=== PATIENT | male | born 1945 | race Caucasian/White ===

== ENCOUNTER 2022-01-03 23:10 | Observation (INO) ==
[2022-01-04] MEDS ORDERED: Naloxone 0.4 MG/ML INJ IVP PRN (02:05)
[2022-01-04] MEDS ORDERED: Ondansetron 4 MG/2 ML VIAL IVP PRN (02:05)
[2022-01-04] MEDS: 0.9 % Sodium Chloride 1,000 ML IVC SCH ×2 (02:43→19:47)
[2022-01-04] MEDS ORDERED: *HR* HYDROmorphone (PF) 1 MG/ML SYRINGE IVP PRN (04:11)
[2022-01-04 05:59] LABS: Hemoglobin 13.3 g/dL (12.9-16.9); Mean Corpuscular Hemoglobin 32.1 pg (28.0-33.3); Mean Corpuscular Volume 91.8 fL (83.0-100.0); Mean Platelet Volume 11.2 fL (9.4-12.4); Platelet Count 244 K/mcL (140-400); Red Blood Count 4.14 M/mcL (4.19-5.50); Red Cell Distribution Width 12.1 % (11.5-14.5); White Blood Count 10.6 K/mcL (4.3-11.1)
[2022-01-04 06:05] LABS: INR 1.2; Prothrombin Time 13.3 Seconds (9.4-12.1)
[2022-01-04 06:08] LABS: Activated Partial Thrombo Time 34.1 Seconds (26.0-36.0)
[2022-01-04 06:24] LABS: BUN/Creatinine Ratio 19 (6-26); Blood Urea Nitrogen 25 mg/dL (8-23); Calcium 9.4 mg/dL (8.6-10.3); Carbon Dioxide 20 mEq/L (23-29); Chloride 109 mEq/L (98-107); Glucose 116 mg/dL (70-105); Osmolality,Calculated 293 (280-300); Potassium 3.5 mEq/L (3.5-5.1); Sodium 139 mEq/L (136-145); eGFR For African Americans > 60 (> 60); eGFR For Non-African Americans 53 (> 60)
[2022-01-04] MEDS ORDERED: Lidocaine -MPF 2% 2 ML VIAL ONE (06:38)
[2022-01-04] MEDS ORDERED: Ketamine HCL *QUVA* 50mg (1mL) SYRINGE ONE (06:46)
[2022-01-04] MEDS: Acetaminophen 325 MG TABLET PO PRN (19:32)
[2022-01-05 06:27] LABS: Basophils % 0.6 %; Eosinophils # 0.3 K/mcL (0.0-0.6); Eosinophils % 3.8 %; Hematocrit 34.8 % (37.5-50.1); Immature Granulocytes % 0.3 % (0-4); Lymphocytes # 1.7 K/mcL (0.6-4.6); Lymphocytes % 24.5 %; Mean Corpuscular HGB Conc 34.5 g/dL (31.6-35.5); Mean Corpuscular Hemoglobin 32.3 pg (28.0-33.3); Mean Corpuscular Volume 93.5 fL (83.0-100.0); Mean Platelet Volume 11.2 fL (9.4-12.4); Monocytes # 0.6 K/mcL (0.0-1.3); Monocytes % 8.3 %; Neutrophils # 4.3 K/mcL (1.6-8.9); Platelet Count 175 K/mcL (140-400); Red Blood Count 3.72 M/mcL (4.19-5.50); Red Cell Distribution Width 12.1 % (11.5-14.5); Segmented Neutrophils % 62.5 %; White Blood Count 6.9 K/mcL (4.3-11.1)
[2022-01-05 06:38] LABS: BUN/Creatinine Ratio 18 (6-26); Blood Urea Nitrogen 19 mg/dL (8-23); Calcium 8.8 mg/dL (8.6-10.3); Carbon Dioxide 23 mEq/L (23-29); Chloride 113 mEq/L (98-107); Glucose 90 mg/dL (70-105); Magnesium 1.9 mg/dL (1.6-2.6); Osmolality,Calculated 294 (280-300); Phosphorous 2.8 mg/dL (2.7-4.5); Potassium 3.5 mEq/L (3.5-5.1); Sodium 141 mEq/L (136-145); eGFR For African Americans > 60 (> 60); eGFR For Non-African Americans > 60 (> 60)
[2022-01-05] MEDS: lisinopriL 20 MG TABLET PO SCH (11:23)
[2022-01-06] MEDS: Acetaminophen 325 MG TABLET PO PRN ×2 (01:37→23:41)
[2022-01-06 03:23] LABS: Basophils # 0.1 K/mcL (0.0-0.2); Basophils % 0.7 %; Eosinophils # 0.4 K/mcL (0.0-0.6); Eosinophils % 5.8 %; Hematocrit 34.8 % (37.5-50.1); Hemoglobin 11.9 g/dL (12.9-16.9); Immature Granulocytes % 0.4 % (0-4); Lymphocytes # 1.8 K/mcL (0.6-4.6); Lymphocytes % 25.2 %; Mean Corpuscular HGB Conc 34.2 g/dL (31.6-35.5); Mean Corpuscular Hemoglobin 32.4 pg (28.0-33.3); Mean Corpuscular Volume 94.8 fL (83.0-100.0); Mean Platelet Volume 11.4 fL (9.4-12.4); Monocytes # 0.6 K/mcL (0.0-1.3); Monocytes % 8.7 %; Neutrophils # 4.2 K/mcL (1.6-8.9); Platelet Count 189 K/mcL (140-400); Red Blood Count 3.67 M/mcL (4.19-5.50); Red Cell Distribution Width 12.3 % (11.5-14.5); Segmented Neutrophils % 59.2 %; White Blood Count 7.1 K/mcL (4.3-11.1)
[2022-01-06 03:41] LABS: BUN/Creatinine Ratio 18 (6-26); Blood Urea Nitrogen 22 mg/dL (8-23); Calcium 8.6 mg/dL (8.6-10.3); Carbon Dioxide 23 mEq/L (23-29); Chloride 109 mEq/L (98-107); Glucose 94 mg/dL (70-105); Osmolality,Calculated 291 (280-300); Potassium 3.5 mEq/L (3.5-5.1); Sodium 139 mEq/L (136-145); eGFR For African Americans > 60 (> 60); eGFR For Non-African Americans 59 (> 60)
[2022-01-06] MEDS: lisinopriL 20 MG TABLET PO SCH (09:10)
[2022-01-06] MEDS: polyethylene glycoL 3350 17 GM POWD.PACK PO SCH (11:19)
[2022-01-07 05:02] VITALS: TEMP 98
[2022-01-07] MEDS: lisinopriL 20 MG TABLET PO SCH (09:36)
[2022-01-07] MEDS: polyethylene glycoL 3350 17 GM POWD.PACK PO SCH (09:36)
[2022-01-07 12:18] VITALS: BP 143/88; PULSE 69; O2SAT 94
== END 2022-01-07 12:45 | disposition home or self-care (01) ==
LOC: 3ANU → SUATTDRO 01-04 01:41
PROVIDERS: ADMIT Internal Medicine; ATTEND Family Medicine

== ENCOUNTER 2022-04-14 07:39 | Inpatient (IN) ==
[2022-04-14 08:51] LABS: Basophils % 0.2 %; Eosinophils % 0.1 %; Hematocrit 40.8 % (37.5-50.1); Hemoglobin 14.3 g/dL (12.9-16.9); Immature Granulocytes % 0.3 % (0-4); Lymphocytes % 10.4 %; Mean Corpuscular Hemoglobin 31.8 pg (28.0-33.3); Mean Corpuscular Volume 90.9 fL (83.0-100.0); Mean Platelet Volume 11.2 fL (9.4-12.4); Monocytes # 0.4 K/mcL (0.0-1.3); Monocytes % 3.9 %; Neutrophils # 7.8 K/mcL (1.6-8.9); Platelet Count 275 K/mcL (140-400); Red Blood Count 4.49 M/mcL (4.19-5.50); Red Cell Distribution Width 12.2 % (11.5-14.5); Segmented Neutrophils % 85.1 %; White Blood Count 9.2 K/mcL (4.3-11.1)
[2022-04-14 08:57] LABS: BUN/Creatinine Ratio 14 (6-26); Blood Urea Nitrogen 19 mg/dL (8-23); Calcium 10.2 mg/dL (8.6-10.3); Carbon Dioxide 23 mEq/L (23-29); Chloride 105 mEq/L (98-107); Glucose 138 mg/dL (70-105); Osmolality,Calculated 288 (280-300); Potassium 3.6 mEq/L (3.5-5.1); Sodium 137 mEq/L (136-145)
[2022-04-14 08:58] LABS: Bilirubin,Urine Negative (Negative); Blood,Urine Trace (Negative); Clarity,Urine Clear (Clear); Color,Urine Yellow (Yellow); Glucose,Urine (UA) Normal (Normal); Hyaline Casts,Urine Few per lpf (None Seen); Ketones,Urine 10 mg/dL (Negative); Leukocyte Esterase,Urine Negative (Negative); Mucus,Urine Few per lpf (None-Few); Nitrite,Urine Negative (Negative); Protein,Urine 100 mg/dL (Neg-Trace); RBC,Urine 0-3 per hpf (0-3); Squamous Epithelial Cell,Urine Few per hpf (None-Few); Urobilinogen,Urine Normal (Normal); WBC,Urine 0-3 per hpf (0-3)
[2022-04-14 11:46] LABS: Alanine Aminotransferase 24 Units/L (7-52); Albumin 4.9 g/dL (3.5-5.7); Albumin/Globulin Ratio 1.6 (1.1-2.2); Alkaline Phosphatase 79 Units/L (34-104); Aspartate Amino Transferase 24 Units/L (13-39); Bilirubin,Direct 0.2 mg/dL (0.0-0.2); Bilirubin,Indirect 0.6 mg/dL (0.0-1.0); Bilirubin,Total 0.8 mg/dL (0.3-1.0); Globulin 3.1 g/dL (2.4-3.5); Lipase 9 Units/L (11-82)
[2022-04-14] MEDS ORDERED: 0.9 % Sodium Chloride 1,000 ML IVC ONE (12:07)
[2022-04-14] MEDS ORDERED: *HR* FentaNYL (PF) 100 MCG/2 ML VIAL IVP ONE (12:07)
[2022-04-14] MEDS ORDERED: Iopamidol - 370 500 ML MLS IVP ONE (12:07)
[2022-04-14] MEDS ORDERED: Ondansetron 4 MG/2 ML VIAL IVP ONE (12:07)
[2022-04-14 12:36] LABS: Troponin I < 0.03 ng/mL (< 0.04)
[2022-04-14] MEDS ORDERED: *HR* Propofol 200 MG/20 ML VIAL IVP ONE (14:54)
[2022-04-14] MEDS ORDERED: Lidocaine -MPF 2% 5 ML VIAL ONE (14:55)
[2022-04-14] MEDS ORDERED: *HR* HYDROmorphone (PF) 1 MG/ML SYRINGE IVP ONE (15:00)
[2022-04-14] MEDS ORDERED: Acetaminophen 325 MG TABLET PO PRN (15:35)
[2022-04-14] MEDS ORDERED: Naloxone 0.4 MG/ML INJ IVP PRN (15:35)
[2022-04-14] MEDS ORDERED: Ondansetron 4 MG/2 ML VIAL IVP PRN (15:35)
[2022-04-14] MEDS ORDERED: D5% in Water 1,000 ML IVC PRN (15:40)
[2022-04-14] MEDS ORDERED: Dextrose Gel 15 GM/37.5 ML TUBE PO PRN ×2 (15:40)
[2022-04-14] MEDS ORDERED: *HR* Dextrose 50 % in Water (Syg) 50 ML SYRINGE IVP PRN (15:40)
[2022-04-14] MEDS ORDERED: Ringers Solution, Lactated 1,000 ML IVC SCH (15:45)
[2022-04-14 16:21] LABS: Estimated Average Glucose 111 mg/dl; Hemoglobin A1C 5.5 %
[2022-04-14] MEDS: Insulin LISPRO 300 UNITS/3 ML VIAL SUBQ SCH (19:02)
[2022-04-14] MEDS: 0.9 % Sodium Chloride 1,000 ML IVC SCH (23:20)
[2022-04-15 01:39] LABS: Basophils % 0.3 %; Eosinophils # 0.1 K/mcL (0.0-0.6); Hematocrit 33.5 % (37.5-50.1); Immature Granulocytes % 0.3 % (0-4); Lymphocytes # 2.3 K/mcL (0.6-4.6); Lymphocytes % 26.7 %; Mean Corpuscular HGB Conc 35.2 g/dL (31.6-35.5); Mean Corpuscular Hemoglobin 32.2 pg (28.0-33.3); Mean Corpuscular Volume 91.5 fL (83.0-100.0); Mean Platelet Volume 10.6 fL (9.4-12.4); Monocytes # 0.8 K/mcL (0.0-1.3); Monocytes % 9.1 %; Neutrophils # 5.4 K/mcL (1.6-8.9); Platelet Count 225 K/mcL (140-400); Red Blood Count 3.66 M/mcL (4.19-5.50); Red Cell Distribution Width 12.5 % (11.5-14.5); Segmented Neutrophils % 62.6 %; White Blood Count 8.6 K/mcL (4.3-11.1)
[2022-04-15 01:45] LABS: Hemoglobin 11.8 g/dL (12.9-16.9)
[2022-04-15 02:02] LABS: Calcium 8.6 mg/dL (8.6-10.3); Potassium 3.5 mEq/L (3.5-5.1)
[2022-04-15] MEDS: Insulin LISPRO 300 UNITS/3 ML VIAL SUBQ SCH ×4 (04:43→17:37)
[2022-04-15] MEDS: Pantoprazole 40 MG VIAL IVP SCH (09:08)
[2022-04-15] MEDS: 0.9 % Sodium Chloride 1,000 ML IVC SCH (09:08)
[2022-04-15] MEDS: amLODIPine 5 MG TABLET PO SCH (12:37)
[2022-04-16] MEDS: 0.9 % Sodium Chloride 1,000 ML IVC SCH ×4 (00:11→23:08)
[2022-04-16 05:58] LABS: Basophils % 0.5 %; Eosinophils # 0.2 K/mcL (0.0-0.6); Eosinophils % 2.8 %; Hematocrit 34.7 % (37.5-50.1); Hemoglobin 12.2 g/dL (12.9-16.9); Immature Granulocytes % 0.4 % (0-4); Lymphocytes # 1.7 K/mcL (0.6-4.6); Lymphocytes % 22.9 %; Mean Corpuscular HGB Conc 35.2 g/dL (31.6-35.5); Mean Corpuscular Hemoglobin 32.4 pg (28.0-33.3); Mean Platelet Volume 11.2 fL (9.4-12.4); Monocytes # 0.6 K/mcL (0.0-1.3); Monocytes % 7.9 %; Platelet Count 196 K/mcL (140-400); Red Blood Count 3.77 M/mcL (4.19-5.50); Red Cell Distribution Width 12.5 % (11.5-14.5); Segmented Neutrophils % 65.5 %; White Blood Count 7.6 K/mcL (4.3-11.1)
[2022-04-16] MEDS: Insulin LISPRO 300 UNITS/3 ML VIAL SUBQ SCH ×3 (06:03→20:01)
[2022-04-16 06:04] LABS: INR 1.2; Prothrombin Time 13.1 Seconds (9.4-12.1)
[2022-04-16 06:21] LABS: Magnesium 1.8 mg/dL (1.6-2.6); Phosphorous 3.2 mg/dL (2.7-4.5)
[2022-04-16 06:24] LABS: Calcium 8.4 mg/dL (8.6-10.3); Potassium 2.9 mEq/L (3.5-5.1)
[2022-04-16] MEDS ORDERED: *HR* Propofol 200 MG/20 ML VIAL IVP ONE (07:22)
[2022-04-16] MEDS ORDERED: Lidocaine HCL 4 ML Topical Solution (Laryng-O-Jet Kit Sterile Pak) TP ONE (07:23)
[2022-04-16] MEDS ORDERED: *HR* Rocuronium Bromide 50 MG/5 ML VIAL ONE ×2 (07:23→09:55)
[2022-04-16] MEDS ORDERED: *HR* FentaNYL (PF) 100 MCG/2 ML VIAL ONE ×2 (07:23→10:06)
[2022-04-16] MEDS ORDERED: Lidocaine -MPF 2% 5 ML VIAL ONE (07:23)
[2022-04-16] MEDS ORDERED: Ondansetron 4 MG/2 ML VIAL ONE (07:23)
[2022-04-16] MEDS ORDERED: CefOXitin 1,000 MG VIAL ONE (07:24)
[2022-04-16] MEDS: Pantoprazole 40 MG VIAL IVP SCH (08:02)
[2022-04-16] MEDS: amLODIPine 5 MG TABLET PO SCH (08:02)
[2022-04-16] MEDS ORDERED: *HR* HYDROmorphone PF 0.5 MG/0.5 ML SYRINGE IVP PRN (08:41)
[2022-04-16] MEDS ORDERED: *HR* Magnesium Sulfate 1 GM/2 ML VIAL ONE (09:40)
[2022-04-16] MEDS ORDERED: Ketamine HCL *QUVA* 50mg (1mL) SYRINGE ONE (09:42)
[2022-04-16] MEDS ORDERED: CeFAZolin 2,000 MG/120 ML BAG IVPB ONE (09:45)
[2022-04-16] MEDS ORDERED: Acetaminophen IV 1,000 MG/100 ML BAG IVPB ONE (09:45)
[2022-04-16] MEDS: Acetaminophen IV 1,000 MG/100 ML BAG IVPB ONE ×2 (10:45→15:01)
[2022-04-16] MEDS ORDERED: Sugammadex Sodium 200 MG/2 ML VIAL IV ONE (10:58)
[2022-04-16] MEDS ORDERED: *HR* HYDROMORPHONE 2 MG/ML VIAL ONE (11:03)
[2022-04-16] MEDS ORDERED: *HR* Labetalol 20 MG/4 ML SYRINGE IVP ONE ×2 (11:40→11:42)
[2022-04-16] MEDS ORDERED: Dextrose Gel 15 GM/37.5 ML TUBE PO PRN ×2 (12:29)
[2022-04-16] MEDS ORDERED: D5% in Water 1,000 ML IVC PRN (12:29)
[2022-04-16] MEDS ORDERED: *HR* Dextrose 50 % in Water (Syg) 50 ML SYRINGE IVP PRN (12:29)
[2022-04-16] MEDS ORDERED: Ondansetron 4 MG/2 ML VIAL IVP PRN (12:29)
[2022-04-16] MEDS ORDERED: Acetaminophen IV 1,000 MG/100 ML BAG IVPB SCH (12:29)
[2022-04-16] MEDS ORDERED: Morphine PCA 30 MG/ 30 ML 30 ML PCA.VIAL IVC PRN (12:29)
[2022-04-16] MEDS ORDERED: Naloxone 0.4 MG/ML INJ IVP PRN (12:29)
[2022-04-16] MEDS ORDERED: Ringers Solution, Lactated 1,000 ML IVC SCH (12:29)
[2022-04-16] MEDS: lisinopriL 20 MG TABLET PO SCH (15:20)
[2022-04-16] MEDS: *HR* Heparin 5,000 UNIT/ML VIAL SQ SCH (17:52)
[2022-04-16] MEDS: Acetaminophen IV 1,000 MG/100 ML BAG IVPB SCH (21:05)
[2022-04-17] MEDS: Insulin LISPRO 300 UNITS/3 ML VIAL SUBQ SCH ×4 (00:10→18:51)
[2022-04-17] MEDS: Acetaminophen IV 1,000 MG/100 ML BAG IVPB SCH ×4 (03:41→20:12)
[2022-04-17] MEDS: 0.9 % Sodium Chloride 1,000 ML IVC SCH ×2 (03:42→20:11)
[2022-04-17 05:13] LABS: Basophils % 0.1 %; Hematocrit 33.8 % (37.5-50.1); Hemoglobin 12.3 g/dL (12.9-16.9); Immature Granulocytes % 0.4 % (0-4); Lymphocytes # 0.9 K/mcL (0.6-4.6); Lymphocytes % 7.7 %; Mean Corpuscular HGB Conc 36.4 g/dL (31.6-35.5); Mean Corpuscular Hemoglobin 32.5 pg (28.0-33.3); Mean Corpuscular Volume 89.4 fL (83.0-100.0); Mean Platelet Volume 10.7 fL (9.4-12.4); Monocytes % 8.1 %; Neutrophils # 10.2 K/mcL (1.6-8.9); Platelet Count 230 K/mcL (140-400); Red Blood Count 3.78 M/mcL (4.19-5.50); Red Cell Distribution Width 12.4 % (11.5-14.5); Segmented Neutrophils % 83.7 %
[2022-04-17 05:21] LABS: White Blood Count 12.2 K/mcL (4.3-11.1)
[2022-04-17 05:30] LABS: Magnesium 1.9 mg/dL (1.6-2.6); Phosphorous 3.3 mg/dL (2.7-4.5)
[2022-04-17 05:33] LABS: Calcium 8.5 mg/dL (8.6-10.3); Potassium 3.2 mEq/L (3.5-5.1)
[2022-04-17] MEDS: *HR* Heparin 5,000 UNIT/ML VIAL SQ SCH ×2 (06:07→18:54)
[2022-04-17] MEDS: Pantoprazole 40 MG VIAL IVP SCH (10:08)
[2022-04-17] MEDS: lisinopriL 20 MG TABLET PO SCH (10:08)
[2022-04-17] MEDS: amLODIPine 5 MG TABLET PO SCH (10:08)
[2022-04-18] MEDS: Insulin LISPRO 300 UNITS/3 ML VIAL SUBQ SCH ×2 (00:12→05:02)
[2022-04-18] MEDS: Acetaminophen IV 1,000 MG/100 ML BAG IVPB SCH ×2 (02:43→08:58)
[2022-04-18 03:07] LABS: Basophils % 0.1 %; Eosinophils # 0.1 K/mcL (0.0-0.6); Eosinophils % 0.7 %; Hematocrit 34.3 % (37.5-50.1); Hemoglobin 12.2 g/dL (12.9-16.9); Immature Granulocytes % 0.5 % (0-4); Lymphocytes # 1.3 K/mcL (0.6-4.6); Lymphocytes % 12.6 %; Mean Corpuscular HGB Conc 35.6 g/dL (31.6-35.5); Mean Corpuscular Hemoglobin 32.4 pg (28.0-33.3); Mean Corpuscular Volume 91.2 fL (83.0-100.0); Mean Platelet Volume 11.8 fL (9.4-12.4); Monocytes # 0.8 K/mcL (0.0-1.3); Neutrophils # 8.1 K/mcL (1.6-8.9); Platelet Count 240 K/mcL (140-400); Red Blood Count 3.76 M/mcL (4.19-5.50); Red Cell Distribution Width 12.7 % (11.5-14.5); Segmented Neutrophils % 78.1 %; White Blood Count 10.3 K/mcL (4.3-11.1)
[2022-04-18 03:25] LABS: Calcium 8.5 mg/dL (8.6-10.3); Potassium 3.3 mEq/L (3.5-5.1)
[2022-04-18] MEDS: *HR* Heparin 5,000 UNIT/ML VIAL SQ SCH ×2 (04:56→17:47)
[2022-04-18] MEDS: *HR* OxyCODONE Immed Rel 5 MG TABLET PO PRN ×4 (04:58→17:46)
[2022-04-18] MEDS: Pantoprazole 40 MG VIAL IVP SCH (08:59)
[2022-04-18] MEDS: amLODIPine 5 MG TABLET PO SCH (09:00)
[2022-04-18] MEDS: lisinopriL 20 MG TABLET PO SCH (09:00)
[2022-04-18] MEDS: Ibuprofen 800 MG TABLET PO SCH ×2 (11:33→20:21)
[2022-04-18] MEDS: 0.9 % Sodium Chloride 1,000 ML IVC SCH (11:55)
[2022-04-19 02:44] LABS: Basophils % 0.4 %; Eosinophils # 0.3 K/mcL (0.0-0.6); Eosinophils % 2.5 %; Hematocrit 35.9 % (37.5-50.1); Hemoglobin 12.5 g/dL (12.9-16.9); Immature Granulocytes % 0.5 % (0-4); Lymphocytes # 1.9 K/mcL (0.6-4.6); Lymphocytes % 17.1 %; Mean Corpuscular HGB Conc 34.8 g/dL (31.6-35.5); Mean Corpuscular Volume 91.8 fL (83.0-100.0); Mean Platelet Volume 10.7 fL (9.4-12.4); Monocytes % 9.3 %; Neutrophils # 7.7 K/mcL (1.6-8.9); Platelet Count 260 K/mcL (140-400); Red Blood Count 3.91 M/mcL (4.19-5.50); Segmented Neutrophils % 70.2 %; White Blood Count 10.9 K/mcL (4.3-11.1)
[2022-04-19 03:19] LABS: Calcium 8.6 mg/dL (8.6-10.3); Potassium 3.2 mEq/L (3.5-5.1)
[2022-04-19] MEDS: Ibuprofen 800 MG TABLET PO SCH ×3 (03:23→18:05)
[2022-04-19] MEDS: *HR* Heparin 5,000 UNIT/ML VIAL SQ SCH ×2 (06:11→17:25)
[2022-04-19] MEDS: *HR* OxyCODONE Immed Rel 5 MG TABLET PO PRN ×3 (06:13→17:25)
[2022-04-19] MEDS: amLODIPine 5 MG TABLET PO SCH (08:10)
[2022-04-19] MEDS: lisinopriL 20 MG TABLET PO SCH (08:11)
[2022-04-20] MEDS: Ibuprofen 800 MG TABLET PO SCH ×3 (02:44→16:39)
[2022-04-20] MEDS: *HR* Heparin 5,000 UNIT/ML VIAL SQ SCH ×2 (06:07→17:10)
[2022-04-20] MEDS ORDERED: *HR* Promethazine 25 MG/ML VIAL IM ONE (06:11)
[2022-04-20] MEDS: amLODIPine 5 MG TABLET PO SCH (09:26)
[2022-04-20] MEDS: lisinopriL 20 MG TABLET PO SCH (11:26)
[2022-04-20] MEDS ORDERED: 0.9 % Sodium Chloride 1,000 ML IVC SCH (11:30)
[2022-04-20] MEDS ORDERED: Lidocaine Viscous Oral Soln 15 ML SOLUTION MM PRN (12:23)
[2022-04-21 02:16] LABS: Basophils % 0.4 %; Eosinophils # 0.3 K/mcL (0.0-0.6); Hematocrit 36.3 % (37.5-50.1); Hemoglobin 12.8 g/dL (12.9-16.9); Immature Granulocytes % 0.7 % (0-4); Lymphocytes # 1.2 K/mcL (0.6-4.6); Lymphocytes % 12.7 %; Mean Corpuscular HGB Conc 35.3 g/dL (31.6-35.5); Mean Corpuscular Hemoglobin 32.2 pg (28.0-33.3); Mean Corpuscular Volume 91.2 fL (83.0-100.0); Mean Platelet Volume 10.1 fL (9.4-12.4); Monocytes # 0.8 K/mcL (0.0-1.3); Monocytes % 8.9 %; Neutrophils # 6.8 K/mcL (1.6-8.9); Platelet Count 278 K/mcL (140-400); Red Blood Count 3.98 M/mcL (4.19-5.50); Red Cell Distribution Width 12.8 % (11.5-14.5); Segmented Neutrophils % 74.3 %; White Blood Count 9.2 K/mcL (4.3-11.1)
[2022-04-21 02:41] LABS: Calcium 8.8 mg/dL (8.6-10.3)
[2022-04-21] MEDS: Ibuprofen 800 MG TABLET PO SCH ×3 (02:50→18:00)
[2022-04-21] MEDS: *HR* Heparin 5,000 UNIT/ML VIAL SQ SCH ×2 (05:48→18:00)
[2022-04-21] MEDS: 0.9 % Sodium Chloride 1,000 ML IVC SCH ×2 (05:49→20:40)
[2022-04-21] MEDS: amLODIPine 5 MG TABLET PO SCH (06:54)
[2022-04-21] MEDS ORDERED: POTASSIUM CHLORIDE IN 0.9%NACL 40 MEQ/1,000 ML IV.SOLN IV ONE (07:23)
[2022-04-21] MEDS ORDERED: 0.9 % Sodium Chloride w KCl 40 MEQ/1,000 ML MLS IVC SCH (07:45)
[2022-04-21] MEDS: lisinopriL 20 MG TABLET PO SCH (13:06)
[2022-04-22] MEDS: Ibuprofen 800 MG TABLET PO SCH ×3 (03:23→20:48)
[2022-04-22 03:31] LABS: Basophils % 0.4 %; Eosinophils # 0.2 K/mcL (0.0-0.6); Eosinophils % 3.1 %; Hematocrit 32.2 % (37.5-50.1); Hemoglobin 11.3 g/dL (12.9-16.9); Immature Granulocytes % 0.6 % (0-4); Lymphocytes # 1.5 K/mcL (0.6-4.6); Lymphocytes % 21.8 %; Mean Corpuscular HGB Conc 35.1 g/dL (31.6-35.5); Mean Corpuscular Hemoglobin 32.2 pg (28.0-33.3); Mean Corpuscular Volume 91.7 fL (83.0-100.0); Mean Platelet Volume 11.2 fL (9.4-12.4); Monocytes # 0.8 K/mcL (0.0-1.3); Monocytes % 10.7 %; Neutrophils # 4.5 K/mcL (1.6-8.9); Platelet Count 267 K/mcL (140-400); Red Blood Count 3.51 M/mcL (4.19-5.50); Red Cell Distribution Width 13.1 % (11.5-14.5); Segmented Neutrophils % 63.4 %
[2022-04-22 03:46] LABS: Calcium 8.4 mg/dL (8.6-10.3)
[2022-04-22] MEDS: *HR* Heparin 5,000 UNIT/ML VIAL SQ SCH ×2 (06:03→17:03)
[2022-04-22] MEDS: amLODIPine 5 MG TABLET PO SCH (08:08)
[2022-04-22] MEDS: lisinopriL 20 MG TABLET PO SCH (08:10)
[2022-04-22] MEDS: 0.9 % Sodium Chloride 1,000 ML IVC SCH ×2 (13:12→13:16)
[2022-04-23 03:12] LABS: Basophils # 0.1 K/mcL (0.0-0.2); Basophils % 0.7 %; Eosinophils # 0.4 K/mcL (0.0-0.6); Eosinophils % 5.7 %; Hematocrit 31.2 % (37.5-50.1); Hemoglobin 10.8 g/dL (12.9-16.9); Immature Granulocytes % 1.1 % (0-4); Lymphocytes # 1.7 K/mcL (0.6-4.6); Lymphocytes % 22.8 %; Mean Corpuscular HGB Conc 34.6 g/dL (31.6-35.5); Mean Corpuscular Hemoglobin 31.7 pg (28.0-33.3); Mean Corpuscular Volume 91.5 fL (83.0-100.0); Mean Platelet Volume 10.7 fL (9.4-12.4); Monocytes # 0.8 K/mcL (0.0-1.3); Monocytes % 10.4 %; Neutrophils # 4.4 K/mcL (1.6-8.9); Platelet Count 271 K/mcL (140-400); Red Blood Count 3.41 M/mcL (4.19-5.50); Red Cell Distribution Width 13.2 % (11.5-14.5); Segmented Neutrophils % 59.3 %; White Blood Count 7.3 K/mcL (4.3-11.1)
[2022-04-23 03:30] LABS: Calcium 8.2 mg/dL (8.6-10.3); Potassium 3.2 mEq/L (3.5-5.1)
[2022-04-23] MEDS: 0.9 % Sodium Chloride 1,000 ML IVC SCH (04:57)
[2022-04-23] MEDS: Ibuprofen 800 MG TABLET PO SCH ×2 (04:58→11:25)
[2022-04-23] MEDS: *HR* Heparin 5,000 UNIT/ML VIAL SQ SCH (04:58)
[2022-04-23] MEDS: amLODIPine 5 MG TABLET PO SCH (07:56)
[2022-04-23 11:17] VITALS: BP 150/83; PULSE 84; TEMP 98.5; O2SAT 98
== END 2022-04-23 14:01 | disposition home or self-care (01) | DRG 330 ==
LOC: 3ANU 07:39 → EMEROOARM 07:39 → SUATTDRO 15:05 → 3ANU 16:03 → SUATTDRO 04-16 13:50
PROVIDERS: ADMIT Pharmacist; ATTEND Internal Medicine